=== PATIENT | male | born 1950 | race Caucasian/White ===

== ENCOUNTER → 2019-07-25 | Day surgery (SDC) | payer OTHER ==
[~2019-07-25] MED LIST: IV RINGERS,LACTATED 1000ML 1,000 ML IV ONE; LIDOCAINE 2% PF 5 ML VIAL. ONE; LISI-338 PO; METO25TA4 PO; OMEP40CA45 PO; PROPOFOL 40 ML IV ONE; TRAM50TA PO
--- NOTE | 2019-07-25 15:37 | PDOC4 ---
PROCEDURE Procedure Colon/biopsies/cold snare Indication: Screen, no prior. Meds: per anesthesia Findings: FANY normal. --'Scope advanced to cecum. Mucosa normal, no diverticula. -2, 3-5mm polyps, proximal transverse, biopsied off. -2, 3-4 mm polyps, splenic flexure , biopsied off. -4-5mm polyp, descending, biopsied off. -8mm polyp, proximal sigmoid, cold snared. -4, 7-8mm polyps, rectum, cold snared. Otherwise normal. Xiomara. well. IMP: Multiple polyps. REC: Await histology. Resume meds, diet. F/u in 2 weeks. Repeat procedure pending path. FABIAN ATKINS MD Jul 25, 2019 15:36
[2019-07-25 16:03] VITALS: BP 141/64
--- NOTE | 2019-07-27 15:07 | PATHOLOGY ---
[facility] Accession Number: [id number] . 01 Material submitted: . PART A: colon - PROXIMAL TRANSVERSE COLON POLYP. Modifiers: proximal, transverse PART B: splenic flexure - SPLENIC FLEXURE POLYPS PART C: colon - DESCENDING COLON POLYP. Modifiers: descending PART D: colon - PROXIMAL SIGMOID POLYP. Modifiers: sigmoid, proximal PART E: rectum - RECTAL POLYPS . 01 Clinical history: . Screening . 02 Diagnosis: A. Colon biopsies, transverse colon polyp: - Tubular adenoma. . B. Colon biopsies, splenic flexure polyps: - Tubular adenoma (1). - Hyperplastic polyps. . C. Colon biopsy, descending colon polyp: - Sessile serrated polyp/adenoma. . D. Colon biopsy, proximal sigmoid polyp: - Tubulovillous adenoma, predominantly tubular, showing focal high-grade dysplasia. . E. Colorectal biopsies, rectal polyps: - Tubular adenomas (few). - Hyperplastic polyps (multiple). (JPM:albaro; 07/27/2019) S 07/27/2019 0932 Local . 02 Comment: There is no evidence of malignancy. . 02 Electronically signed: . Fransisco Arana MD, Pathologist NPI- [id number] . 01 Gross description: . A. The specimen is received in formalin, labeled "Jarett, Celestine, proximal transverse colon polyp", are few irregular fragments of ahn soft tissue measuring 0.8 x 0.5 x 0.1 cm in aggregate. Entirely submitted in A1. . B. The specimen is received in formalin, labeled "Jarett, Celestine, splenic flexure polyps", is a ahn rubbery sessile polyp measuring 0.6 x 0.2 x 0.1 cm, inked black and bisected. Also received are few similar ahn soft fragments measuring 0.5 x 0.4 x 0.2 cm in aggregate. The specimen is entirely submitted in B1. . C. The specimen is received in formalin, labeled "Celestine Denson, descending colon polyp", is a ahn rubbery sessile polyp measuring 0.4 x 0.2 x 0.2 cm, inked black and bisected. The specimen is entirely submitted in C1. . D. The specimen is received in formalin, labeled "Celestine Denson, proximal sigmoid polyp", is a ahn rubbery sessile polyp measuring 0.8 x 0.6 x 0.5 cm, inked black and trisected. The specimen is entirely submitted in D1. . E. The specimen is received in formalin, labeled "Celestine Denson, rectal polyps", are multiple ahn rubbery polyps measuring 1.0 x 0.8 x 0.3 cm in aggregate. The specimen is entirely submitted in E1. ([facility]; 07/26/2019) [facility] 07/27/[address] [place] [address] . 02 Pathologist provided ICD-10: D12.3, D12.4, D12.5, D12.8, K63.5, K62.1 . 02 CPT . 493272, 433518, 532358, [id number], 501321 Specimen Comment: A courtesy copy of this report has been sent to Specimen Comment: [phone], . Specimen Comment: Report sent to / DR MERCER Performed at: 01 [facility] [address], [place], [place] [id number] MD Sacha Cazares MD Phone: [phone] Performed at: [address] [facility] [address] [place], [place] [id number] MD Fransisco Arana MD Phone: [phone]
== END ==
LOC: SURG 14:10
PROVIDERS: ATTEND Internal Medicine Gastroenterology
DX: K92.1 Melena (principal); D12.3 Benign neoplasm of transverse colon; K63.5 Polyp of colon; D12.4 Benign neoplasm of descending colon; D12.5 Benign neoplasm of sigmoid colon; K62.1 Rectal polyp; I10 Essential (primary) hypertension; K21.9 Gastro-esophageal reflux disease without esophagitis; Z88.0 Allergy status to penicillin; Z87.442 Personal history of urinary calculi; Z90.49 Acquired absence of other specified parts of digestive tract; Z98.890 Other specified postprocedural states
CPT/HCPCS: 45380; 45385; 88305; J2001; J2704